=== PATIENT | male | born 1990 | race African-American/Black ===

== ENCOUNTER 2020-03-09 12:14 | Emergency (ER) | payer SELFPAY ==
--- NOTE | 2020-03-09 12:18 | PDOC ---
Rapid Medical Evaluation Time Seen by Provider: 03/09/20 12:16 Medical Evaluation: 03/09/20 12:16 I have performed a brief in-person evaluation of this patient. CC: "My mouth hurts." PE: Swelling present to left submandibular area. Multiple dental caries present. Orders: CT facial bones with IV contrast Patient will proceed to ED for further evaluation. Discharge Disposition - Diagnosis Facial abscess - Referrals - Patient Instructions - Post Discharge Activity
[2020-03-09 12:19] VITALS: BMI 26.1
[2020-03-09] MEDS ORDERED: SODIUM CHLORIDE 0.9% 500 ML INFUS.BAG IV ONE (12:36)
--- NOTE | 2020-03-09 12:40 | PDOC ---
History of Present Illness - General Chief Complaint: Wound Stated Complaint: INFECTION Time Seen by Provider: 03/09/20 12:16 History Source: Patient Exam Limitations: No Limitations - History of Present Illness Initial Comments: 03/09/20 12:37 Patient is a 30-year-old male with no past medical history who presents to the ED with left facial swelling that started 3 days ago. The patient states that he began to have dental pain and swelling to the left lower jaw Monday after work. By the time he got out of work his dentist was closed and he was unable to see him. He denies any fevers or chills. He does admit to facial pain but denies any headaches. He denies any shortness of breath. Patient states he was unable to see his dentist today as well because it is [place] Day. He denies any allergies to medications. The patient took 800mg of ibuprofen at about 11 am today and states it did not help his pain much. Past History - Medical History Allergies/Adverse Reactions: Allergies Allergy/AdvReac Type Severity Reaction Status Date / Time No Known Allergies Allergy Verified 03/09/20 12:16 Home Medications: Ambulatory Orders Clindamycin [Cleocin -] 300 mg PO Q6HPO 7 Days #28 capsule 03/09/20 Ibuprofen [Advil -] 600 mg PO QID 03/09/20 - Psycho-Social/Smoking History Smoking History: Never smoked - Substance Abuse Hx (Audit-C & DAST Scrn) How often the patient has a drink containing alcohol: Never Score: In Men: 4 or > Positive; In Women: 3 or > Positive: 0 Screen Result (Pos requires Nsg. Audit-10AR): Negative In the last yr the pt used illegal drug/Rx for NonMed reason: No Score: Yes response is considered Positive: 0 Screen Result (Positive result requires Nsg. DAST-10): Negative Review of Systems - Review of Systems Comments:: 03/09/20 12:38 - Review of Systems Able to Perform ROS?: Yes Constitutional: No: Fever, Chills, Loss of Appetite, Night Sweats, Weakness HEENTM: No: Eye Pain, Vision changes, Ear Pain, Throat Pain, Throat Swelling, Mouth Pain, Difficulty Swallowing; positive: Left mandibular dental pain and facial swelling Respiratory: No: Cough, Shortness of Breath, Wheezing, Sputum Production Cardiac (ROS): No: Chest Pain, Chest Tightness, Palpitations, Irregular Heart Beat, Edema ABD/GI: No: Nausea, Vomiting, Abdominal Pain, Diarrhea : No Dysuria, No Hematuria, No Frequency, No Urgency Musculoskeletal: No: Muscle Pain, Back Pain, Joint Pain, Muscle Weakness, Neck Pain Integumentary: No: Lesions, Rash Neurological: No: Headache, Numbness, Tingling, Weakness, Speech Difficulties *Physical Exam - Vital Signs Last Vital Signs Temp Pulse Resp BP Pulse Ox 99.8 F H 114 H 18 160/94 03/09/20 12:18 03/09/20 12:18 03/09/20 12:18 03/09/20 12:18 - Physical Exam 03/09/20 12:38 - Physical Exam General Appearance: Nourished, Appropriately Dressed, No Distress HEENT: EOMI, Normal Voice, No Pharyngeal Erythema, No Muffled/Hoarse voice, No Tonsillar Exudate, No Tonsillar Erythema, No Nasal Congestion, No Rhinorrhea, Hearing Grossly Normal, TMs Normal, No TM Bulging, No TM Dullness, No TM Erythema; left mandibular region with swelling to the buccal gingiva and tenderness to palpation. No discrete abscess appreciated but there is an area of fluctuance. Tenderness to tapping the left lower teeth. Swelling extends to the left cheek and mandibular region. No significant lymphadenopathy appreciated. Neck: Supple, No Lymphadenopathy (R), No Lymphadenopathy (L), No Rigidity, No Decreased range of motion Respiratory/Chest: Lungs Clear, Normal Breath Sounds. No Respiratory Distress, No Accessory Muscle Use Cardiovascular: Regular Rhythm, Regular Rate, S1, S2 Gastrointestinal/Abdominal: Normal Bowel Sounds, Soft. Non-tender, No Guarding, No Rebound, No Rigidity Musculoskeletal: Normal Inspection. No Decreased Range of Motion Extremity: Normal Capillary Refill, Normal Inspection Integumentary: Normal Color, Dry. No Rash Neurologic: video software engineer II-XII NML intact, Fully Oriented, Alert, Normal Mood/Affect, Normal Response ED Treatment Course - LABORATORY CBC & Chemistry Diagram: 03/09/20 12:34 03/09/20 12:34 Medical Decision Making - Medical Decision Making 03/09/20 12:39 Assessment: Patient is a 30-year-old male with left mandibular dental pain and facial swelling. Plan: -Saline lock and labs ordered -1 L of NS ordered -CT maxillofacial ordered with contrast -Will reassess 03/09/20 14:10 The patient refused the CT scan stating that he does not need it. We have made the patient aware several times that this will help us determine if the abscess extends deeper and requires further intervention. He states he understands and is continuing to decline a CT scan. 1 dose of clindamycin IV has been ordered and we will discharge the patient with clindamycin p.o. 03/09/20 15:12 Patient has gotten 1 dose of antibiotics in the emergency department. We will send the remaining clindamycin to his pharmacy. He has been encouraged to follow-up with his dentist as soon as possible for further evaluation and treatment. He understands and agrees with this treatment plan and has been given strict return precautions. The patient stable for discharge. Discharge - Discharge Information Problems reviewed: Yes Clinical Impression/Diagnosis: Dental abscess Condition: Stable Disposition: HOME - Additional Discharge Information Prescriptions: Clindamycin [Cleocin -] 300 mg PO Q6HPO 7 Days #28 capsule - Follow up/Referral - Patient Discharge Instructions Patient Printed Discharge Instructions: Tooth Abscess Additional Instructions: Gargle with salt water as this will help open your abscess up. Take the antibiotics as prescribed and complete the entire course. Be sure to see your dentist tomorrow, even as an emergency, as this abscess must be opened up. Return to the emergency department for high fevers, shaking chills, increased pain, increased facial swelling or any other worsening symptoms. - Post Discharge Activity
[2020-03-09] MEDS ORDERED: ACETAMINOPHEN 500 MG TABLET (FP) PO ONE (12:43)
[2020-03-09] MEDS ORDERED: ACETAMINOPHEN 500 MG TABLET (FP) ONE (12:46)
[2020-03-09 12:52] LABS: BASO % 0.8 % (0-2.0); EOS % 0.3 % (0-4.5); HEMATOCRIT 38.2 % (35.4-49); HEMOGLOBIN 12.3 GM/dL (11.7-16.9); MCH 22.5 pg (25.7-33.7); MCHC 32.3 g/dl (32.0-35.9); MEAN CELL VOLUME 69.7 fl (80-96); MEAN PLT VOLUME 8.9 fl (7.5-11.1); MONO % 10.8 % (3.8-10.2); NEUT % 79.1 % (42.8-82.8); PLATELET COUNT 219 K/MM3 (134-434); RBC 5.49 M/mm3 (4.00-5.60); RDW 19.8 % (11.9-15.9); WHITE BLOOD COUNT 10.4 K/mm3 (4.0-10.0)
[2020-03-09 13:12] LABS: BILIRUBIN,TOTAL 1.2 mg/dL (0.2-1); BLOOD UREA NITROGEN 7.9 mg/dL (7-18); CALCIUM 9.1 mg/dL (8.5-10.1); CREATININE 1.1 mg/dL (0.55-1.3); POTASSIUM 3.1 mmol/L (3.5-5.1); TOT PROT 7.5 g/dl (6.4-8.2)
[2020-03-09] MEDS ORDERED: CLINDAMYCIN PHOSPHATE 600 MG/4 ML VIAL ONE (14:09)
[2020-03-09] MEDS ORDERED: CLINDAMYCIN 600MG PREMIX IVPB 600 MG/50 ML BAG IVPB ONE (14:09)
[2020-03-09 14:51] VITALS: BP 156/99; PULSE 94; TEMP 98.7
== END 2020-03-09 15:34 | disposition home or self-care (01) ==
LOC: JER 12:14 → JERFT 12:14
DX: K04.7 Periapical abscess without sinus (principal)
CPT/HCPCS: 36415; 80053; 85025; 99285-25